=== PATIENT | female | born 1955 | race Caucasian/White ===

== ENCOUNTER 2020-10-01 12:28 | Inpatient (IN) ==
[2020-10-01] MEDS ORDERED: Ibuprofen 600 MG TABLET PO ONE (13:00)
[2020-10-01 13:19] LABS: Basophils % 0.4 %; Hematocrit 38.8 % (35.3-44.9); Immature Granulocytes % 0.5 % (0-4); Lymphocytes % 53.9 %; Mean Corpuscular HGB Conc 33.5 g/dL (31.6-35.5); Mean Corpuscular Hemoglobin 31.5 pg (28.0-33.3); Mean Corpuscular Volume 93.9 fL (83.0-100.0); Mean Platelet Volume 9.4 fL (9.4-12.4); Monocytes # 0.4 K/mcL (0.0-1.3); Monocytes % 7.4 %; Neutrophils # 2.1 K/mcL (1.6-8.9); Platelet Count 129 K/mcL (140-400); Red Blood Count 4.13 M/mcL (3.82-4.97); Red Cell Distribution Width 12.7 % (11.5-14.5); Segmented Neutrophils % 37.8 %; White Blood Count 5.6 K/mcL (4.3-11.1)
[2020-10-01 13:23] LABS: INR 1.2; Prothrombin Time 13.7 Seconds (9.4-12.1)
[2020-10-01 13:25] LABS: Activated Partial Thrombo Time 25.7 Seconds (26.0-36.0)
[2020-10-01 13:40] LABS: Alanine Aminotransferase 16 Units/L (7-52); Albumin 3.7 g/dL (3.5-5.7); Albumin/Globulin Ratio 1.5 (1.1-2.2); Aspartate Amino Transferase 23 Units/L (13-39); BUN/Creatinine Ratio 25 (6-26); Bilirubin,Direct 0.2 mg/dL (0.0-0.2); Bilirubin,Indirect 0.5 mg/dL (0.0-1.0); Bilirubin,Total 0.7 mg/dL (0.3-1.0); Blood Urea Nitrogen 19 mg/dL (8-23); C-Reactive Protein 63 mg/L (Less than 10); Calcium 9.1 mg/dL (8.6-10.3); Carbon Dioxide 29 mEq/L (23-29); Chloride 99 mEq/L (98-107); Globulin 2.4 g/dL (2.4-3.5); Glucose 324 mg/dL (70-105); Lactate Dehydrogenase 302 Units/L (140-271); Magnesium 1.5 mg/dL (1.6-2.6); Osmolality,Calculated 299 (280-300); Phosphorous 2.8 mg/dL (2.7-4.5); Potassium 3.4 mEq/L (3.5-5.1); Sodium 137 mEq/L (136-145); Total Protein 6.1 g/dL (6.4-8.9); Troponin I < 0.03 ng/mL (< 0.04); eGFR For African Americans > 60 (> 60); eGFR For Non-African Americans > 60 (> 60)
[2020-10-01] MEDS ORDERED: Isovue-370 500 ML BOTTLE IVP ONE (13:45)
[2020-10-01 13:47] LABS: Alkaline Phosphatase 88 Units/L (34-104)
[2020-10-01 14:09] LABS: Platelet Estimate Slight Decrease (Normal)
[2020-10-01] MEDS ORDERED: Ondansetron 4 MG/2 ML VIAL IVP PRN (15:21)
[2020-10-01] MEDS ORDERED: Dextrose Gel 15 GM/37.5 ML TUBE PO PRN ×2 (15:21)
[2020-10-01] MEDS ORDERED: *HR* Dextrose 50 % in Water (Vial) 50 ML VIAL IVP PRN (15:21)
[2020-10-01] MEDS ORDERED: Naloxone 0.4 MG/ML INJ IVP PRN (15:21)
[2020-10-01] MEDS ORDERED: D5% in Water 1,000 ML IVC PRN (15:21)
[2020-10-01] MEDS ORDERED: Benzonatate 100 MG CAPSULE PO PRN (15:23)
[2020-10-01] MEDS ORDERED: Magnesium Sulfate 1 GM/102 ML PIGGYBACK IVPB ONE (15:23)
[2020-10-01] MEDS ORDERED: Potassium Chloride Elixir 20 MEQ/15 ML UDC PO ONE ×2 (15:23→17:00)
[2020-10-01] MEDS: Aspirin 81 MG TAB.CHEW PO SCH (16:57)
[2020-10-01] MEDS: lisinopriL 10 MG TABLET PO SCH (16:58)
[2020-10-01] MEDS ORDERED: *HR* Enoxaparin 40 MG/0.4 ML SYRINGE SQ SCH (18:00)
[2020-10-01] MEDS: Insulin LISPRO 300 UNITS/3 ML VIAL SUBQ SCH (18:24)
[2020-10-01] MEDS: Gabapentin 300 MG CAPSULE PO SCH (20:32)
[2020-10-01] MEDS ORDERED: tiZANidine 4 MG TABLET PO SCH (21:00)
[2020-10-02] MEDS: *HR* Enoxaparin 40 MG/0.4 ML SYRINGE SQ SCH (04:42)
[2020-10-02 05:51] LABS: Basophils % 0.2 %; Hematocrit 36.3 % (35.3-44.9); Immature Granulocytes % 0.8 % (0-4); Lymphocytes # 5.8 K/mcL (0.6-4.6); Lymphocytes % 61.4 %; Mean Corpuscular HGB Conc 33.1 g/dL (31.6-35.5); Mean Corpuscular Hemoglobin 30.8 pg (28.0-33.3); Mean Corpuscular Volume 93.1 fL (83.0-100.0); Mean Platelet Volume 9.8 fL (9.4-12.4); Monocytes # 0.6 K/mcL (0.0-1.3); Monocytes % 6.1 %; Platelet Count 143 K/mcL (140-400); Red Cell Distribution Width 12.9 % (11.5-14.5); Segmented Neutrophils % 31.5 %
[2020-10-02 05:57] LABS: White Blood Count 9.5 K/mcL (4.3-11.1)
[2020-10-02 06:26] LABS: Platelet Estimate Normal (Normal); Reactive Lymphocytes Present (Not Present)
[2020-10-02] MEDS ORDERED: Acetaminophen 325 MG TABLET PO PRN (08:44)
[2020-10-02] MEDS: Insulin LISPRO 300 UNITS/3 ML VIAL SUBQ SCH ×3 (09:10→17:22)
[2020-10-02] MEDS: Aspirin 81 MG TAB.CHEW PO SCH (09:11)
[2020-10-02] MEDS: lisinopriL 10 MG TABLET PO SCH (09:12)
[2020-10-02] MEDS: Venlafaxine XR (24 HR) 75 MG CAP.ER.24H PO SCH (09:13)
[2020-10-02] MEDS: Gabapentin 300 MG CAPSULE PO SCH (09:13)
[2020-10-02 09:25] LABS: BUN/Creatinine Ratio 34 (6-26); Blood Urea Nitrogen 24 mg/dL (8-23); Calcium 9.2 mg/dL (8.6-10.3); Carbon Dioxide 26 mEq/L (23-29); Chloride 98 mEq/L (98-107); Glucose 223 mg/dL (70-105); Magnesium 2.2 mg/dL (1.6-2.6); Osmolality,Calculated 291 (280-300); Potassium 3.8 mEq/L (3.5-5.1); Sodium 135 mEq/L (136-145); eGFR For African Americans > 60 (> 60); eGFR For Non-African Americans > 60 (> 60)
[2020-10-02] MEDS: Cholecalciferol (D-3) 1,000 UNIT (25MCG) TABLET PO SCH (11:56)
[2020-10-02] MEDS: tiZANidine 4 MG TABLET PO PRN (20:25)
[2020-10-03] MEDS: Acetaminophen 325 MG TABLET PO PRN ×2 (04:10→11:49)
[2020-10-03] MEDS: *HR* Enoxaparin 40 MG/0.4 ML SYRINGE SQ SCH (05:48)
[2020-10-03] MEDS: Insulin LISPRO 300 UNITS/3 ML VIAL SUBQ SCH ×3 (07:44→17:04)
[2020-10-03] MEDS: Cholecalciferol (D-3) 1,000 UNIT (25MCG) TABLET PO SCH (09:43)
[2020-10-03] MEDS: Aspirin 81 MG TAB.CHEW PO SCH (09:43)
[2020-10-03] MEDS: Venlafaxine XR (24 HR) 75 MG CAP.ER.24H PO SCH (09:44)
[2020-10-03] MEDS: lisinopriL 20 MG TABLET PO SCH (09:44)
[2020-10-04] MEDS: *HR* Enoxaparin 40 MG/0.4 ML SYRINGE SQ SCH (05:09)
[2020-10-04 05:24] LABS: Basophils % 0.2 %; Hematocrit 36.5 % (35.3-44.9); Hemoglobin 12.3 g/dL (11.5-15.4); Immature Granulocytes % 0.9 % (0-4); Lymphocytes # 8.2 K/mcL (0.6-4.6); Mean Corpuscular HGB Conc 33.7 g/dL (31.6-35.5); Mean Corpuscular Hemoglobin 30.8 pg (28.0-33.3); Mean Corpuscular Volume 91.3 fL (83.0-100.0); Mean Platelet Volume 9.5 fL (9.4-12.4); Monocytes # 0.7 K/mcL (0.0-1.3); Monocytes % 5.1 %; Neutrophils # 3.8 K/mcL (1.6-8.9); Platelet Count 182 K/mcL (140-400); Red Cell Distribution Width 13.1 % (11.5-14.5); Segmented Neutrophils % 29.8 %; White Blood Count 12.8 K/mcL (4.3-11.1)
[2020-10-04] MEDS: *HR* Labetalol 20 MG/4 ML SYRINGE IVP PRN (05:32)
[2020-10-04] MEDS: Acetaminophen 325 MG TABLET PO PRN ×2 (05:32→19:57)
[2020-10-04 05:45] LABS: BUN/Creatinine Ratio 33 (6-26); Blood Urea Nitrogen 24 mg/dL (8-23); Calcium 8.8 mg/dL (8.6-10.3); Carbon Dioxide 29 mEq/L (23-29); Chloride 95 mEq/L (98-107); Glucose 108 mg/dL (70-105); Osmolality,Calculated 281 (280-300); Potassium 4.1 mEq/L (3.5-5.1); Sodium 133 mEq/L (136-145); eGFR For African Americans > 60 (> 60); eGFR For Non-African Americans > 60 (> 60)
[2020-10-04 06:33] LABS: Anisocytosis 1+ (Not Present); Reactive Lymphocytes Present (Not Present); Smudge Cells Present (Not Present)
[2020-10-04 06:34] LABS: Platelet Estimate Normal (Normal)
[2020-10-04] MEDS: Insulin LISPRO 300 UNITS/3 ML VIAL SUBQ SCH ×3 (07:17→16:34)
[2020-10-04] MEDS: Venlafaxine XR (24 HR) 75 MG CAP.ER.24H PO SCH (10:51)
[2020-10-04] MEDS: Cholecalciferol (D-3) 1,000 UNIT (25MCG) TABLET PO SCH (10:51)
[2020-10-04] MEDS: lisinopriL 20 MG TABLET PO SCH (10:51)
[2020-10-04] MEDS: Aspirin 81 MG TAB.CHEW PO SCH (10:51)
[2020-10-04] MEDS: tiZANidine 4 MG TABLET PO PRN (19:57)
[2020-10-04] MEDS ORDERED: *HR* Dextrose 50 % in Water (Vial) 50 ML VIAL IVP PRN (21:06)
[2020-10-04] MEDS ORDERED: Dextrose Gel 15 GM/37.5 ML TUBE PO PRN ×2 (21:06)
[2020-10-04] MEDS ORDERED: D5% in Water 1,000 ML IVC PRN (21:06)
[2020-10-04] MEDS ORDERED: Insulin LISPRO 300 UNITS/3 ML VIAL SUBQ SCH (21:15)
[2020-10-05 02:12] LABS: Basophils % 0.2 %; Hematocrit 36.1 % (35.3-44.9); Hemoglobin 12.1 g/dL (11.5-15.4); Immature Granulocytes % 0.7 % (0-4); Lymphocytes # 6.8 K/mcL (0.6-4.6); Lymphocytes % 62.9 %; Mean Corpuscular HGB Conc 33.5 g/dL (31.6-35.5); Mean Corpuscular Hemoglobin 31.2 pg (28.0-33.3); Mean Platelet Volume 9.5 fL (9.4-12.4); Monocytes # 0.6 K/mcL (0.0-1.3); Monocytes % 5.9 %; Neutrophils # 3.3 K/mcL (1.6-8.9); Platelet Count 192 K/mcL (140-400); Red Blood Count 3.88 M/mcL (3.82-4.97); Red Cell Distribution Width 13.2 % (11.5-14.5); Segmented Neutrophils % 30.3 %; White Blood Count 10.8 K/mcL (4.3-11.1)
[2020-10-05 02:22] LABS: D-Dimer 3418 ng/mLFEU (0-500)
[2020-10-05 02:33] LABS: BUN/Creatinine Ratio 37 (6-26); Blood Urea Nitrogen 29 mg/dL (8-23); Carbon Dioxide 30 mEq/L (23-29); Chloride 96 mEq/L (98-107); Glucose 143 mg/dL (70-105); Osmolality,Calculated 284 (280-300); Potassium 4.1 mEq/L (3.5-5.1); Sodium 133 mEq/L (136-145); eGFR For African Americans > 60 (> 60); eGFR For Non-African Americans > 60 (> 60)
[2020-10-05 02:34] LABS: Fibrinogen 561 mg/dL (169-393)
[2020-10-05] MEDS: *HR* Enoxaparin 40 MG/0.4 ML SYRINGE SQ SCH (05:24)
[2020-10-05] MEDS: *HR* Labetalol 20 MG/4 ML SYRINGE IVP PRN (05:35)
[2020-10-05 07:29] VITALS: BP 165/71
[2020-10-05] MEDS: Insulin LISPRO 300 UNITS/3 ML VIAL SUBQ SCH ×2 (08:24→11:55)
[2020-10-05] MEDS: Aspirin 81 MG TAB.CHEW PO SCH (08:46)
[2020-10-05] MEDS: lisinopriL 20 MG TABLET PO SCH (08:46)
[2020-10-05] MEDS: Cholecalciferol (D-3) 1,000 UNIT (25MCG) TABLET PO SCH (08:46)
[2020-10-05] MEDS: Venlafaxine XR (24 HR) 75 MG CAP.ER.24H PO SCH (08:46)
== END 2020-10-05 13:30 | disposition home or self-care (01) | DRG 177 ==
LOC: 2NENU 12:28 → EMEROOARM 12:28 → SUATTDRO 15:33 → 2NENU 16:36
PROVIDERS: ADMIT Internal Medicine; ATTEND Internal Medicine